=== PATIENT | female | born 1950 | race African-American/Black ===

== ENCOUNTER 2020-10-03 09:27 | Emergency (ER) | payer MEDICARE ==
[~2020-10-03] VITALS: Ht 157.5 cm; Wt 72.7 kg
[2020-10-03 09:38] VITALS: BP 129/71
== END 2020-10-03 09:32 | disposition home or self-care (01) ==
LOC: EMS 09:32
DX: H57.10 Ocular pain, unspecified eye (principal); Z53.21 Procedure and treatment not carried out due to patient leaving prior to being seen by health care provider